=== PATIENT | female | born 1935 | race African-American/Black ===

== ENCOUNTER 2019-05-01 05:10 | Inpatient (IN) | payer OTHER ==
[~2019-05-01] VITALS: Ht 170.2 cm; Wt 73.0 kg
[2019-05-01] MEDS ORDERED: IPRATROPIUM BROMIDE (0.02%) 0.5MG/2.5ML NEB HHN STA (05:41)
[2019-05-01] MEDS ORDERED: PREDNISONE 20MG TABLET PO STA (05:41)
[2019-05-01] MEDS ORDERED: ALBUTEROL (0.083%) 2.5MG/3ML NEB HHN STA (05:41)
[2019-05-01 07:07] LABS: CLARITY URINE CLOUDY (CLEAR); COLOR URINE YELLOW (YELLOW); KETONES URINE NEGATIVE (NEGATIVE); LEUKOCYTE ESTERASE URINE NEGATIVE (NEGATIVE); NITRITE URINE NEGATIVE (NEGATIVE); OCCULT BLOOD URINE NEGATIVE (NEGATIVE); PH URINE 8.5 (4.5-8.0); PROTEIN URINE NEGATIVE (NEGATIVE); SPECIFIC GRAVITY URINE 1.011 (1.005-1.030); UROBILINOGEN URINE 0.2 E.U./dL (0.2-1.0)
[2019-05-01 07:17] LABS: BASOPHILS % 0.5 % (0.0-2.0); EOSINOPHILS % 5.4 % (0.0-5.0); HEMATOCRIT. 38.3 % (36.0-48.0); HEMOGLOBIN. 12.8 g/dL (12.0-16.0); LYMPHOCYTES % 14.5 % (20.0-50.0); MEAN CORPUSCULAR HEMOGLOBIN 34.2 pg (28.0-32.0); MEAN PLATELET VOLUME 8.3 fl (7.4-10.4); MONOCYTES % 6.9 % (2.0-8.0); NEUTROPHILS % 72.7 % (40.0-76.0); PLATELET 221 x1000/uL (130-400); RED BLOOD CELL COUNT 3.75 mill/uL (4.2-5.4); RED CELL DISTRIBUTION WIDTH 13.1 % (11.6-14.6)
[2019-05-01 07:25] LABS: CHLORIDE 100 mEq/L (98-107)
[2019-05-01] MEDS ORDERED: ASPIRIN 81MG TABLET PO ONE (08:00)
[2019-05-01] MEDS ORDERED: ENOXAPARIN 100MG/ML SYR SUBCUT ONE (08:00)
[2019-05-01] MEDS ORDERED: ALPR-340 PO (10:43)
[2019-05-01] MEDS ORDERED: HYDR25TA PO (10:43)
[2019-05-01] MEDS ORDERED: LISI-604 PO (10:43)
[2019-05-01 10:45] VITALS: BP 155/78
[2019-05-01] MEDS ORDERED: DIPHENHYDRAMINE 50MG/ML VIAL IV PRN (11:00)
[2019-05-01] MEDS ORDERED: HYDROCODONE/ACETAMINOPHEN 5/325MG TABLET PO PRN (11:00)
[2019-05-01] MEDS ORDERED: MAGNESIUM/ALUMINUM HYDROXIDE/SIMETHICONE 30ML UDC PO PRN (11:00)
[2019-05-01] MEDS ORDERED: DOCUSATE SODIUM 100MG CAPSULE PO PRN (11:00)
[2019-05-01] MEDS ORDERED: METHYLPREDNISOLONE SOD SUCC 125 MG/2 ML VIAL IV SCH (11:00)
[2019-05-01] MEDS ORDERED: NA PHOS,M-B/NA PHOS,DI-BA ENEMA 118ML PR PRN (11:00)
[2019-05-01] MEDS ORDERED: IPRATROPIUM/ALBUTEROL 0.5-3(2.5)MG/3ML NEB NEB PRN (11:00)
[2019-05-01] MEDS ORDERED: ONDANSETRON HCL 4MG/2ML INJ IV PRN (11:00)
[2019-05-01] MEDS ORDERED: MORPHINE SULFATE 2 MG/ML CPJ (NOT FOR IM USE) IV PRN (11:00)
[2019-05-01] MEDS ORDERED: ACETAMINOPHEN 325MG TABLET PO PRN (11:00)
[2019-05-01] MEDS ORDERED: CLONIDINE 0.1MG TABLET PO PRN (11:00)
[2019-05-01] MEDS: ENOXAPARIN 40MG/0.4ML SYR SUBCUT SCH (11:49)
[2019-05-01 12:00] VITALS: BP 145/75
[2019-05-01 16:00] VITALS: BP 123/69
[2019-05-01] MEDS: IPRATROPIUM/ALBUTEROL 0.5-3(2.5)MG/3ML NEB HHN SCH ×2 (16:09→20:14)
[2019-05-01] MEDS ORDERED: POTASSIUM CHLORIDE 20MEQ TABLET SR PO NR (16:20)
[2019-05-01] MEDS ORDERED: FAMOTIDINE 20MG TABLET PO SCH (17:00)
[2019-05-01 20:00] VITALS: BP 122/65
[2019-05-01 20:03] LABS: CHLORIDE 97 mEq/L (98-107)
[2019-05-01 20:09] LABS: LDL CHOLESTEROL 92 mg/dL (5-100)
[2019-05-01 20:11] LABS: HDL CHOLESTEROL 102 mg/dL (40-59)
[2019-05-01] MEDS: BUDESONIDE 0.5MG/2ML NEB HHN SCH (20:14)
[2019-05-01] MEDS: AMLODIPINE 5MG TABLET PO SCH (21:07)
[2019-05-01] MEDS: METHYLPREDNISOLONE SOD SUCC 40 MG/ML VIAL IV SCH (21:07)
[2019-05-02] VITALS: BP 127/85
[2019-05-02] MEDS: ACETYLCYSTEINE 100MG/ML 10% VIAL 4ML INH SCH ×3 (00:18→16:55)
[2019-05-02] MEDS: IPRATROPIUM/ALBUTEROL 0.5-3(2.5)MG/3ML NEB HHN SCH ×6 (00:19→20:12)
[2019-05-02 00:41] LABS: CREATINE KINASE MB FRACTION 1.9 ng/mL (0.5-3.6)
[2019-05-02 04:00] VITALS: BP 136/52
[2019-05-02] MEDS: METHYLPREDNISOLONE SOD SUCC 40 MG/ML VIAL IV SCH ×3 (05:39→22:29)
[2019-05-02 07:25] LABS: BASOPHILS % 0.5 % (0.0-2.0); HEMATOCRIT. 37.8 % (36.0-48.0); HEMOGLOBIN. 12.8 g/dL (12.0-16.0); LYMPHOCYTES % 12.1 % (20.0-50.0); MEAN CORPUSCULAR VOLUME 100.3 fL (81.0-99.0); MEAN PLATELET VOLUME 9.1 fl (7.4-10.4); MONOCYTES % 5.9 % (2.0-8.0); NEUTROPHILS % 81.5 % (40.0-76.0); PLATELET 238 x1000/uL (130-400); RED BLOOD CELL COUNT 3.77 mill/uL (4.2-5.4); RED CELL DISTRIBUTION WIDTH 12.8 % (11.6-14.6)
[2019-05-02 08:00] VITALS: BP 105/72
[2019-05-02 08:07] LABS: CHLORIDE 101 mEq/L (98-107)
[2019-05-02 08:17] LABS: CREATINE KINASE 80 IU/L (26-192)
[2019-05-02 08:19] LABS: T4 FREE 0.87 ng/dL (0.76-1.46)
[2019-05-02 08:20] LABS: CREATINE KINASE MB FRACTION 1.3 ng/mL (0.5-3.6)
[2019-05-02] MEDS: FAMOTIDINE 40MG TABLET PO SCH ×2 (09:00→12:03)
[2019-05-02] MEDS: AMLODIPINE 5MG TABLET PO SCH ×2 (09:00→22:29)
[2019-05-02] MEDS: BUDESONIDE 0.5MG/2ML NEB HHN SCH ×2 (09:46→20:12)
[2019-05-02] MEDS: LORATADINE 10MG TABLET PO SCH (09:58)
[2019-05-02] MEDS: ASPIRIN 81MG EC TABLET PO SCH (09:58)
[2019-05-02] MEDS: LORAZEPAM 2MG/ML CPJ IV PRN (10:58)
[2019-05-02 12:00] VITALS: BP 126/62
[2019-05-02] MEDS: ENOXAPARIN 40MG/0.4ML SYR SUBCUT SCH (12:02)
[2019-05-02 12:53] LABS: BG BASE EXCESS 4.6 mmol/L (-2.0-2.0); BG CARBOXYHEMOGLOBIN 0.5 % (0.5-1.5); BG DEOXYHEMOGLOBIN 8.3 % (0.0-5.0); BG FRACTION INSPIRED OXYGEN 21; BG HCO3 ACT 28.2 mmol/L (22.0-26.0); BG METHEMOGLOBIN 0.1 % (0.0-1.5); BG OXYGEN SATURATION 91.6 % (92.0-98.5); BG OXYHEMOGLOBIN 91.1 % (94.0-97.0); BG PCO2 38.4 mmHg (35.0-45.0); BG PH 7.484 (7.350-7.450); BG PO2 59.8 mmHg (75.0-100.0); BG SAMPLE SITE RIGHT RADIAL; BG TOTAL HEMOGLOBIN 13.4 g/dL (12.0-18.0); BG VENT MODE ROOM AIR
[2019-05-02 15:37] LABS: CREATINE KINASE MB FRACTION 1.1 ng/mL (0.5-3.6)
[2019-05-02 16:00] VITALS: BP 111/59
[2019-05-02 20:00] VITALS: BP 132/57
[2019-05-03] VITALS: BP 151/81
[2019-05-03] MEDS: IPRATROPIUM/ALBUTEROL 0.5-3(2.5)MG/3ML NEB HHN SCH ×6 (00:22→20:42)
[2019-05-03] MEDS: ACETYLCYSTEINE 100MG/ML 10% VIAL 4ML INH SCH ×2 (00:23→07:57)
[2019-05-03] MEDS: METHYLPREDNISOLONE SOD SUCC 40 MG/ML VIAL IV SCH ×3 (03:37→21:17)
[2019-05-03 04:00] VITALS: BP 136/73
[2019-05-03] MEDS: BUDESONIDE 0.5MG/2ML NEB HHN SCH ×2 (07:57→20:41)
[2019-05-03 08:00] VITALS: BP 131/64
[2019-05-03] MEDS: LORATADINE 10MG TABLET PO SCH (09:44)
[2019-05-03] MEDS: ASPIRIN 81MG EC TABLET PO SCH (09:44)
[2019-05-03] MEDS: FAMOTIDINE 40MG TABLET PO SCH (09:44)
[2019-05-03] MEDS: AMLODIPINE 5MG TABLET PO SCH ×2 (09:45→21:00)
[2019-05-03 12:00] VITALS: BP 134/79
[2019-05-03] MEDS: ENOXAPARIN 40MG/0.4ML SYR SUBCUT SCH (12:06)
[2019-05-03 12:47] LABS: BASOPHILS % 0.3 % (0.0-2.0); HEMATOCRIT. 38.7 % (36.0-48.0); LYMPHOCYTES % 9.3 % (20.0-50.0); MEAN CORPUSCULAR VOLUME 101.2 fL (81.0-99.0); MEAN PLATELET VOLUME 8.9 fl (7.4-10.4); MONOCYTES % 7.2 % (2.0-8.0); NEUTROPHILS % 83.2 % (40.0-76.0); PLATELET 255 x1000/uL (130-400); RED BLOOD CELL COUNT 3.83 mill/uL (4.2-5.4); RED CELL DISTRIBUTION WIDTH 12.9 % (11.6-14.6)
[2019-05-03 13:01] LABS: CHLORIDE 102 mEq/L (98-107)
[2019-05-03 16:00] VITALS: BP 131/60
[2019-05-03 20:00] VITALS: BP 109/86
[2019-05-04] VITALS: BP 139/60
[2019-05-04] MEDS: ACETYLCYSTEINE 100MG/ML 10% VIAL 4ML INH SCH ×3 (00:44→16:23)
[2019-05-04] MEDS: IPRATROPIUM/ALBUTEROL 0.5-3(2.5)MG/3ML NEB HHN SCH ×5 (00:45→16:23)
[2019-05-04] MEDS: METHYLPREDNISOLONE SOD SUCC 40 MG/ML VIAL IV SCH ×2 (03:00→12:36)
[2019-05-04 04:00] VITALS: BP 136/73
[2019-05-04] MEDS: BUDESONIDE 0.5MG/2ML NEB HHN SCH (08:23)
[2019-05-04] MEDS: FAMOTIDINE 40MG TABLET PO SCH (08:38)
[2019-05-04] MEDS: ASPIRIN 81MG EC TABLET PO SCH (08:38)
[2019-05-04] MEDS: GUAIFENESIN 200MG/10ML SUGAR FREE UDC PO PRN ×2 (08:38→12:38)
[2019-05-04] MEDS: LORATADINE 10MG TABLET PO SCH (08:38)
[2019-05-04] MEDS: AMLODIPINE 5MG TABLET PO SCH (08:38)
[2019-05-04 12:00] VITALS: BP 126/75
[2019-05-04] MEDS: ENOXAPARIN 40MG/0.4ML SYR SUBCUT SCH (12:36)
[2019-05-04] MEDS ORDERED: FLUT1AER INH (15:22)
[2019-05-04] MEDS ORDERED: FAMO-135 MT (15:22)
[2019-05-04] MEDS ORDERED: P20 PO (15:22)
[2019-05-04] MEDS ORDERED: AMLO5TAB4 MT (15:22)
[2019-05-04] MEDS ORDERED: ALBU90AE INH (15:22)
[2019-05-04] MEDS ORDERED: CLAR10 MT (15:22)
[2019-05-04 16:15] VITALS: BP 133/75
[2019-05-04] MEDS: LORAZEPAM 2MG/ML CPJ IV PRN (17:23)
[2019-05-04 17:26] VITALS: BP 133/75
== END 2019-05-04 17:55 | disposition home or self-care (01) | DRG 291 ==
LOC: ER 05:10 → 5WST 08:45 → EDBEDREQ 08:49 → ENRESERV 09:35
PROVIDERS: ADMIT Internal Medicine; ATTEND Internal Medicine
DX: I11.0 Hypertensive heart disease with heart failure (principal); J96.00 Acute respiratory failure, unspecified whether with hypoxia or hypercapnia; J45.901 Unspecified asthma with (acute) exacerbation; E44.1 Mild protein-calorie malnutrition; E87.1 Hypo-osmolality and hyponatremia; I50.43 Acute on chronic combined systolic (congestive) and diastolic (congestive) heart failure; E78.5 Hyperlipidemia, unspecified; E87.6 Hypokalemia; M19.90 Unspecified osteoarthritis, unspecified site; I16.0 Hypertensive urgency; D72.1 Eosinophilia; N81.2 Incomplete uterovaginal prolapse; Z79.899 Other long term (current) drug therapy; Z88.1 Allergy status to other antibiotic agents; Z88.0 Allergy status to penicillin; Z88.2 Allergy status to sulfonamides; Z88.8 Allergy status to other drugs, medicaments and biological substances; Z68.25 Body mass index [BMI] 25.0-25.9, adult
CPT/HCPCS: 36415; 36600; 71045; 71250; 80048; 80053; 80061; 81003; 82375; 82550; 82553; 82805; 83036; 83880; 84439; 84443; 84484; 85025; 85379; 93005; 93306; 93970; 94618; 94640; 96372; 99285; J1650; J2060; J2920; J2930; J7512; J7608; J7611; J7620; J7626

== ENCOUNTER 2019-08-29 07:22 | Inpatient (IN) | payer OTHER ==
[~2019-08-29] VITALS: Ht 167.6 cm; Wt 70.8 kg
[~2019-08-29 07:22] MED LIST: ALBU90AE INH; ALPR-340 PO; AMLO5TAB4 MT; CLAR10 MT; FAMO-135 MT; FLUT1AER INH; P20 PO
[2019-08-29] MEDS ORDERED: SUCCINYLCHOLINE CHLORIDE 200MG/10ML IV ONE (07:30)
[2019-08-29] MEDS ORDERED: ETOMIDATE 2MG/ML 10ML VIAL IV ONE (07:30)
[2019-08-29] MEDS ORDERED: PROPOFOL 10MG/ML 100ML 100 ML IV ONE ×2 (07:43→08:00)
[2019-08-29] MEDS ORDERED: LORAZEPAM 2MG/ML CPJ ONE ×2 (07:44→07:58)
[2019-08-29] MEDS ORDERED: SODIUM CHLORIDE 0.9% 1000ML BAG (SEPSIS BOLUS) IV ONE (08:00)
[2019-08-29] MEDS ORDERED: LORAZEPAM 2MG/ML CPJ IV ONE (08:00)
[2019-08-29] MEDS ORDERED: MIDAZOLAM HCL 50 MG in DEXTROSE 5% WATER 40 ML IV ONE ×2 (08:15→08:30)
[2019-08-29 08:40] LABS: BASOPHILS % 1.6 % (0.0-2.0); CHLORIDE 109 mEq/L (98-107); EOSINOPHILS % 4.3 % (0.0-5.0); HEMATOCRIT. 37.9 % (36.0-48.0); HEMOGLOBIN. 12.5 g/dL (12.0-16.0); MEAN CORPUSCULAR HEMOGLOBIN 35.2 pg (28.0-32.0); MEAN CORPUSCULAR VOLUME 106.9 fL (81.0-99.0); MEAN PLATELET VOLUME 9.2 fl (7.4-10.4); NEUTROPHILS % 51.1 % (40.0-76.0); PLATELET 225 x1000/uL (130-400); RED BLOOD CELL COUNT 3.55 mill/uL (4.2-5.4); RED CELL DISTRIBUTION WIDTH 13.1 % (11.6-14.6)
[2019-08-29 08:48] LABS: INR 1.1; PROTHROMBIN TIME 12.4 sec (9.6-11.0)
[2019-08-29 09:02] LABS: BG CARBOXYHEMOGLOBIN 2.4 % (0.5-1.5); BG DEOXYHEMOGLOBIN 2.6 % (0.0-5.0); BG HCO3 ACT 19.4 mmol/L (22.0-26.0); BG METHEMOGLOBIN 0.2 % (0.0-1.5); BG OXYGEN SATURATION 97.3 % (92.0-98.5); BG OXYHEMOGLOBIN 94.8 % (94.0-97.0); BG PCO2 47.1 mmHg (35.0-45.0); BG PH 7.232 (7.350-7.450); BG SAMPLE SITE RIGHT BRACHIAL; BG TIDAL VOLUME(mL) 550 mL; BG TOTAL HEMOGLOBIN 11.6 g/dL (12.0-18.0); BG VENT MODE VENT - A/C; BG VENT RATE 14 set
[2019-08-29 09:14] LABS: CLARITY URINE CLEAR (CLEAR); COLOR URINE DARK YELLOW (YELLOW); KETONES URINE NEGATIVE (NEGATIVE); LEUKOCYTE ESTERASE URINE NEGATIVE (NEGATIVE); NITRITE URINE POSITIVE (NEGATIVE); OCCULT BLOOD URINE NEGATIVE (NEGATIVE); PH URINE 5.5 (4.5-8.0); PROTEIN URINE 2+ (NEGATIVE); SPECIFIC GRAVITY URINE 1.019 (1.005-1.030)
[2019-08-29] MEDS ORDERED: SODIUM CHLORIDE 0.9% 1,000 ML IV ONE (10:56)
[2019-08-29] MEDS ORDERED: NOREPINEPHRINE 4 MG in DEXT 5% WATER 246 ML IV ONE (11:00)
[2019-08-29 11:04] LABS: BG BASE EXCESS -3.8 mmol/L (-2.0-2.0); BG CARBOXYHEMOGLOBIN 1.8 % (0.5-1.5); BG HCO3 ACT 20.4 mmol/L (22.0-26.0); BG METHEMOGLOBIN 0.1 % (0.0-1.5); BG OXYHEMOGLOBIN 96.1 % (94.0-97.0); BG PCO2 34.3 mmHg (35.0-45.0); BG PH 7.393 (7.350-7.450); BG PO2 130.3 mmHg (75.0-100.0); BG SAMPLE SITE LEFT RADIAL; BG TIDAL VOLUME(mL) 550 mL; BG VENT MODE VENT - A/C; BG VENT RATE 14 set
[2019-08-29] MEDS ORDERED: NOREPINEPHRINE 4MG/250ML PMX 250 ML IV ONE ×2 (11:08→21:31)
[2019-08-29] MEDS ORDERED: METOCLOPRAMIDE HCL 10MG/2ML VIAL IV PRN (11:15)
[2019-08-29] MEDS ORDERED: CEFEPIME 1,000 MG in DEXTROSE 5% WATER 50 ML IV SCH ×3 (11:15→23:45)
[2019-08-29] MEDS ORDERED: ACETAMINOPHEN 325MG TABLET PO PRN (11:15)
[2019-08-29] MEDS ORDERED: FUROSEMIDE 20MG/2ML VIAL IVP ONE (12:00)
[2019-08-29] MEDS ORDERED: NOREPINEPHRINE 4MG/250ML PMX 250 ML IV PRN (13:45)
[2019-08-29] MEDS ORDERED: MIDAZOLAM HCL 50 MG in DEXTROSE 5% WATER 40 ML IV NR (15:00)
[2019-08-29] MEDS: THIAMINE HCL 100MG TABLET PO SCH (17:00)
[2019-08-30] VITALS (34 sets, daily range): BP systolic 136–168; BP diastolic 69–91
[2019-08-30 01:17] LABS: HEMATOCRIT 37.3 % (36.0-48.0); HEMOGLOBIN 12.3 g/dL (12.0-16.0); MEAN CORPUSCULAR VOLUME 106.5 fL (81.0-99.0); PLATELET 158 x1000/uL (130-400); RED BLOOD CELL COUNT 3.51 mill/uL (4.2-5.4); RED CELL DISTRIBUTION WIDTH 13.1 % (11.6-14.6)
[2019-08-30 05:05] LABS: BASOPHILS % 0.6 % (0.0-2.0); EOSINOPHILS % 1.3 % (0.0-5.0); HEMATOCRIT. 34.8 % (36.0-48.0); HEMOGLOBIN. 11.7 g/dL (12.0-16.0); LYMPHOCYTES % 16.4 % (20.0-50.0); MEAN CORPUSCULAR HEMOGLOBIN 35.4 pg (28.0-32.0); MEAN CORPUSCULAR VOLUME 105.2 fL (81.0-99.0); MEAN PLATELET VOLUME 8.8 fl (7.4-10.4); MONOCYTES % 10.5 % (2.0-8.0); NEUTROPHILS % 71.2 % (40.0-76.0); PLATELET 149 x1000/uL (130-400); RED BLOOD CELL COUNT 3.31 mill/uL (4.2-5.4); RED CELL DISTRIBUTION WIDTH 12.8 % (11.6-14.6)
[2019-08-30 05:12] LABS: CHLORIDE 112 mEq/L (98-107)
[2019-08-30] MEDS ORDERED: PROPOFOL 10MG/ML 100ML 100 ML IV SCH (07:45)
[2019-08-30 07:58] LABS: BG CARBOXYHEMOGLOBIN 1.5 % (0.5-1.5); BG DEOXYHEMOGLOBIN 0.9 % (0.0-5.0); BG HCO3 ACT 21.1 mmol/L (22.0-26.0); BG OXYGEN SATURATION 99.1 % (92.0-98.5); BG OXYHEMOGLOBIN 97.6 % (94.0-97.0); BG PCO2 30.5 mmHg (35.0-45.0); BG PH 7.457 (7.350-7.450); BG PO2 172.1 mmHg (75.0-100.0); BG SAMPLE SITE RIGHT BRACHIAL; BG TIDAL VOLUME(mL) 550 mL; BG TOTAL HEMOGLOBIN 10.9 g/dL (12.0-18.0); BG VENT MODE VENT - A/C; BG VENT RATE 14 set
[2019-08-30] MEDS: ASCORBIC ACID 500 MG TABLET PO SCH ×3 (09:00→21:55)
[2019-08-30] MEDS ORDERED: MIDAZOLAM HCL 50 MG in DEXTROSE 5% WATER 40 ML IV ONE ×2 (09:45→15:30)
[2019-08-30] MEDS: PANTOPRAZOLE SODIUM 40 MG/VIAL IV SCH (09:57)
[2019-08-30] MEDS: THIAMINE HCL 100MG TABLET PO SCH ×2 (09:57→16:25)
[2019-08-30] MEDS: ZINC SULFATE 220 MG ( 50 ) CAPSULE NG SCH (09:57)
[2019-08-30] MEDS: ENOXAPARIN 30MG/0.3ML SYR SUBCUT SCH (11:25)
[2019-08-30] MEDS ORDERED: CEFEPIME 1,000 MG in DEXTROSE 5% WATER 50 ML IV ONE (12:00)
[2019-08-30] MEDS ORDERED: NOREPINEPHRINE 4 MG in DEXT 5% WATER 246 ML IV NR (14:00)
[2019-08-30] MEDS ORDERED: PNEUMOCOCCAL 23-VAL P-SAC VAC 0.5 ML IM ONE (17:30)
[2019-08-30] MEDS ORDERED: INFLUENZA VIRUS VACCINE(AFLURIA) 0.5ML SYR IM ONE (17:45)
[2019-08-30 18:18] LABS: BG BASE EXCESS 0.4 mmol/L (-2.0-2.0); BG CARBOXYHEMOGLOBIN 1.2 % (0.5-1.5); BG FRACTION INSPIRED OXYGEN 60; BG HCO3 ACT 22.7 mmol/L (22.0-26.0); BG METHEMOGLOBIN 0.2 % (0.0-1.5); BG OXYHEMOGLOBIN 97.6 % (94.0-97.0); BG PCO2 29.2 mmHg (35.0-45.0); BG PH 7.508 (7.350-7.450); BG PO2 227.5 mmHg (75.0-100.0); BG SAMPLE SITE RIGHT RADIAL; BG TIDAL VOLUME(mL) 550 mL; BG TOTAL HEMOGLOBIN 11.2 g/dL (12.0-18.0); BG VENT MODE VENT - A/C; BG VENT RATE 14 set
[2019-08-30] MEDS: CEFEPIME 1,000 MG in DEXTROSE 5% WATER 50 ML IV SCH (21:55)
[2019-08-30] MEDS: PROPOFOL 10MG/ML 100ML 100 ML IV PRN (21:58)
[2019-08-30] MEDS: IPRATROPIUM/ALBUTEROL 0.5-3(2.5)MG/3ML NEB HHN SCH (23:45)
[2019-08-31] VITALS (46 sets, daily range): BP systolic 106–183; BP diastolic 42–101
[2019-08-31] MEDS: CLONIDINE 0.1MG TABLET PO PRN (01:30)
[2019-08-31] MEDS: PROPOFOL 10MG/ML 100ML 100 ML IV PRN ×2 (06:06→15:04)
[2019-08-31 07:16] LABS: BASOPHILS % 0.6 % (0.0-2.0); EOSINOPHILS % 1.2 % (0.0-5.0); HEMATOCRIT. 34.3 % (36.0-48.0); HEMOGLOBIN. 11.4 g/dL (12.0-16.0); LYMPHOCYTES % 10.7 % (20.0-50.0); MEAN CORPUSCULAR HEMOGLOBIN 34.7 pg (28.0-32.0); MEAN CORPUSCULAR VOLUME 104.7 fL (81.0-99.0); MONOCYTES % 9.1 % (2.0-8.0); NEUTROPHILS % 78.4 % (40.0-76.0); PLATELET 128 x1000/uL (130-400); RED BLOOD CELL COUNT 3.28 mill/uL (4.2-5.4); RED CELL DISTRIBUTION WIDTH 12.9 % (11.6-14.6)
[2019-08-31 08:23] LABS: CHLORIDE 109 mEq/L (98-107)
[2019-08-31] MEDS: PANTOPRAZOLE SODIUM 40 MG/VIAL IV SCH (08:23)
[2019-08-31] MEDS: ZINC SULFATE 220 MG ( 50 ) CAPSULE NG SCH (08:23)
[2019-08-31] MEDS: CEFEPIME 1,000 MG in DEXTROSE 5% WATER 50 ML IV SCH (08:23)
[2019-08-31] MEDS: ASCORBIC ACID 500 MG TABLET PO SCH ×2 (08:23→20:37)
[2019-08-31] MEDS: THIAMINE HCL 100MG TABLET PO SCH ×2 (08:23→16:08)
[2019-08-31] MEDS: ENOXAPARIN 30MG/0.3ML SYR SUBCUT SCH (08:24)
[2019-08-31] MEDS: IPRATROPIUM/ALBUTEROL 0.5-3(2.5)MG/3ML NEB HHN SCH ×3 (08:24→16:37)
[2019-08-31 09:56] LABS: BG BASE EXCESS -0.2 mmol/L (-2.0-2.0); BG CARBOXYHEMOGLOBIN 1.7 % (0.5-1.5); BG FRACTION INSPIRED OXYGEN 45; BG HCO3 ACT 23.4 mmol/L (22.0-26.0); BG METHEMOGLOBIN 0.2 % (0.0-1.5); BG OXYHEMOGLOBIN 97.1 % (94.0-97.0); BG PCO2 34.5 mmHg (35.0-45.0); BG PH 7.449 (7.350-7.450); BG PO2 152.3 mmHg (75.0-100.0); BG SAMPLE SITE RIGHT BRACHIAL; BG TIDAL VOLUME(mL) 450 mL; BG TOTAL HEMOGLOBIN 11.5 g/dL (12.0-18.0); BG VENT MODE VENT - A/C; BG VENT RATE 14 set
[2019-08-31] MEDS ORDERED: FUROSEMIDE 40MG/4ML VIAL IVP NR (10:45)
[2019-08-31] MEDS: LOSARTAN POTASSIUM 25 MG TABLET PO SCH (12:39)
[2019-08-31] MEDS ORDERED: ONDANSETRON HCL 4MG/2ML INJ IV PRN (14:00)
[2019-08-31] MEDS ORDERED: HYDRALAZINE 20MG/ML VIAL IV PRN (14:00)
[2019-08-31 14:50] LABS: CREATINE KINASE MB FRACTION 1.9 ng/mL (0.5-3.6)
[2019-08-31] MEDS: METHYLPREDNISOLONE SOD SUCC 40 MG/ML VIAL IV SCH (15:03)
[2019-08-31] MEDS: MORPHINE SULFATE 2 MG/ML CPJ (NOT FOR IM USE) IV PRN (15:04)
[2019-08-31] MEDS: LORAZEPAM 2MG/ML CPJ IV PRN (16:23)
[2019-08-31] MEDS ORDERED: PROPOFOL 10MG/ML 100ML 100 ML IV PRN (19:30)
[2019-09-01] VITALS (43 sets, daily range): BP systolic 118–159; BP diastolic 54–84
[2019-09-01] MEDS: CEFEPIME 1,000 MG in DEXTROSE 5% WATER 50 ML IV SCH (05:18)
[2019-09-01 06:26] LABS: HEMATOCRIT 33.5 % (36.0-48.0); HEMOGLOBIN 11.2 g/dL (12.0-16.0); MEAN CORPUSCULAR HEMOGLOBIN 34.8 pg (28.0-32.0); MEAN CORPUSCULAR VOLUME 104.6 fL (81.0-99.0); PLATELET 149 x1000/uL (130-400); RED BLOOD CELL COUNT 3.21 mill/uL (4.2-5.4)
[2019-09-01 06:40] LABS: CHLORIDE 107 mEq/L (98-107)
[2019-09-01 07:41] LABS: BG BASE EXCESS 1.6 mmol/L (-2.0-2.0); BG CARBOXYHEMOGLOBIN 1.7 % (0.5-1.5); BG DEOXYHEMOGLOBIN 1.5 % (0.0-5.0); BG FRACTION INSPIRED OXYGEN 40; BG HCO3 ACT 25.5 mmol/L (22.0-26.0); BG METHEMOGLOBIN 0.2 % (0.0-1.5); BG OXYGEN SATURATION 98.5 % (92.0-98.5); BG OXYHEMOGLOBIN 96.6 % (94.0-97.0); BG PCO2 37.3 mmHg (35.0-45.0); BG PH 7.452 (7.350-7.450); BG PO2 139.3 mmHg (75.0-100.0); BG SAMPLE SITE RIGHT RADIAL; BG TIDAL VOLUME(mL) 450 mL; BG TOTAL HEMOGLOBIN 11.2 g/dL (12.0-18.0); BG VENT MODE VENT - A/C; BG VENT RATE 14 set
[2019-09-01] MEDS: IPRATROPIUM/ALBUTEROL 0.5-3(2.5)MG/3ML NEB HHN SCH ×3 (07:51→15:24)
[2019-09-01] MEDS: PANTOPRAZOLE SODIUM 40 MG/VIAL IV SCH (08:11)
[2019-09-01] MEDS: ZINC SULFATE 220 MG ( 50 ) CAPSULE NG SCH (08:12)
[2019-09-01] MEDS: METHYLPREDNISOLONE SOD SUCC 40 MG/ML VIAL IV SCH (08:12)
[2019-09-01] MEDS: LOSARTAN POTASSIUM 25 MG TABLET PO SCH (08:12)
[2019-09-01] MEDS: ENOXAPARIN 30MG/0.3ML SYR SUBCUT SCH (08:12)
[2019-09-01] MEDS: ASCORBIC ACID 500 MG TABLET PO SCH ×2 (08:12→20:21)
[2019-09-01] MEDS: THIAMINE HCL 100MG TABLET PO SCH ×2 (08:12→17:04)
[2019-09-01] MEDS ORDERED: POTASSIUM CHLORIDE 20MEQ/PACKET PO NR (09:00)
[2019-09-01] MEDS: FUROSEMIDE 40MG/4ML VIAL IVP SCH (10:46)
[2019-09-01] MEDS: MORPHINE SULFATE 2 MG/ML CPJ (NOT FOR IM USE) IV PRN (11:54)
[2019-09-01] MEDS: CLONIDINE 0.1MG TABLET PO PRN (12:59)
[2019-09-01] MEDS: LORAZEPAM 2MG/ML CPJ IV PRN (12:59)
[2019-09-01] MEDS ORDERED: ENOXAPARIN 40MG/0.4ML SYR SUBCUT NR (13:15)
[2019-09-01] MEDS: ACETYLCYSTEINE 100MG/ML 10% VIAL 4ML INH SCH (15:24)
[2019-09-01] MEDS: PROPOFOL 10MG/ML 100ML 100 ML IV PRN (19:33)
[2019-09-01] MEDS: CARVEDILOL 3.125 MG TABLET PO SCH (20:22)
[2019-09-01] MEDS: ENOXAPARIN 80MG/0.8ML SYR SUBCUT SCH (21:17)
[2019-09-02] VITALS (61 sets, daily range): BP systolic 121–165; BP diastolic 24–83
[2019-09-02] MEDS: ACETYLCYSTEINE 100MG/ML 10% VIAL 4ML INH SCH ×4 (00:13→14:21)
[2019-09-02] MEDS: PROPOFOL 10MG/ML 100ML 100 ML IV PRN ×2 (04:20→10:38)
[2019-09-02] MEDS: CEFEPIME 1,000 MG in DEXTROSE 5% WATER 50 ML IV SCH (05:30)
[2019-09-02 06:22] LABS: HEMATOCRIT 34.2 % (36.0-48.0); HEMOGLOBIN 11.5 g/dL (12.0-16.0); MEAN CORPUSCULAR VOLUME 104.5 fL (81.0-99.0); PLATELET 158 x1000/uL (130-400); RED BLOOD CELL COUNT 3.27 mill/uL (4.2-5.4); RED CELL DISTRIBUTION WIDTH 12.8 % (11.6-14.6)
[2019-09-02 06:27] LABS: CHLORIDE 107 mEq/L (98-107)
[2019-09-02 07:52] LABS: BG BASE EXCESS 3.7 mmol/L (-2.0-2.0); BG CARBOXYHEMOGLOBIN 1.6 % (0.5-1.5); BG DEOXYHEMOGLOBIN 1.5 % (0.0-5.0); BG FRACTION INSPIRED OXYGEN 30; BG HCO3 ACT 27.6 mmol/L (22.0-26.0); BG METHEMOGLOBIN 0.1 % (0.0-1.5); BG OXYGEN SATURATION 98.5 % (92.0-98.5); BG OXYHEMOGLOBIN 96.8 % (94.0-97.0); BG PCO2 38.7 mmHg (35.0-45.0); BG PH 7.471 (7.350-7.450); BG PO2 132.9 mmHg (75.0-100.0); BG SAMPLE SITE RIGHT RADIAL; BG TIDAL VOLUME(mL) 450 mL; BG TOTAL HEMOGLOBIN 8.2 g/dL (12.0-18.0); BG VENT MODE VENT - A/C; BG VENT RATE 14 set
[2019-09-02] MEDS: IPRATROPIUM/ALBUTEROL 0.5-3(2.5)MG/3ML NEB HHN SCH ×2 (08:06→14:10)
[2019-09-02] MEDS: METHYLPREDNISOLONE SOD SUCC 40 MG/ML VIAL IV SCH (08:52)
[2019-09-02] MEDS: FUROSEMIDE 40MG/4ML VIAL IVP SCH (08:52)
[2019-09-02] MEDS: ASCORBIC ACID 500 MG TABLET PO SCH ×2 (08:52→21:01)
[2019-09-02] MEDS: THIAMINE HCL 100MG TABLET PO SCH ×2 (08:53→16:14)
[2019-09-02] MEDS: ZINC SULFATE 220 MG ( 50 ) CAPSULE NG SCH (08:53)
[2019-09-02] MEDS: LOSARTAN POTASSIUM 25 MG TABLET PO SCH (08:53)
[2019-09-02] MEDS: CARVEDILOL 3.125 MG TABLET PO SCH ×2 (08:53→21:01)
[2019-09-02] MEDS: PANTOPRAZOLE SODIUM 40 MG/VIAL IV SCH (08:57)
[2019-09-02] MEDS: ENOXAPARIN 80MG/0.8ML SYR SUBCUT SCH ×2 (09:00→21:04)
[2019-09-02 12:38] LABS: BG BASE EXCESS 6.4 mmol/L (-2.0-2.0); BG CARBOXYHEMOGLOBIN 1.6 % (0.5-1.5); BG DEOXYHEMOGLOBIN 1.7 % (0.0-5.0); BG FRACTION INSPIRED OXYGEN 30; BG HCO3 ACT 30.6 mmol/L (22.0-26.0); BG METHEMOGLOBIN 0.2 % (0.0-1.5); BG OXYGEN SATURATION 98.3 % (92.0-98.5); BG OXYHEMOGLOBIN 96.5 % (94.0-97.0); BG PCO2 42.6 mmHg (35.0-45.0); BG PH 7.474 (7.350-7.450); BG PO2 119.3 mmHg (75.0-100.0); BG PRESSURE SUPPORT 10; BG SAMPLE SITE RIGHT RADIAL; BG TOTAL HEMOGLOBIN 11.5 g/dL (12.0-18.0); BG VENT MODE VENT - CPAP
[2019-09-02] MEDS: LORAZEPAM 2MG/ML CPJ IV PRN (13:48)
[2019-09-02] MEDS ORDERED: FUROSEMIDE 40MG/4ML VIAL IVP NR (15:15)
[2019-09-02] MEDS ORDERED: BISACODYL 10MG SUPP PR NR (16:00)
[2019-09-02] MEDS ORDERED: LORAZEPAM 2MG/ML CPJ IV PRN (16:00)
[2019-09-02 16:41] LABS: BG BASE EXCESS 6.4 mmol/L (-2.0-2.0); BG CARBOXYHEMOGLOBIN 1.3 % (0.5-1.5); BG DEOXYHEMOGLOBIN 2.6 % (0.0-5.0); BG FRACTION INSPIRED OXYGEN 35; BG HCO3 ACT 31.1 mmol/L (22.0-26.0); BG METHEMOGLOBIN 0.2 % (0.0-1.5); BG OXYGEN SATURATION 97.4 % (92.0-98.5); BG OXYHEMOGLOBIN 95.9 % (94.0-97.0); BG PCO2 45.6 mmHg (35.0-45.0); BG PH 7.452 (7.350-7.450); BG SAMPLE SITE RIGHT RADIAL; BG TOTAL HEMOGLOBIN 11.6 g/dL (12.0-18.0); BG VENT MODE MASK - AEROSOL
[2019-09-03] VITALS (27 sets, daily range): BP systolic 119–174; BP diastolic 61–105
[2019-09-03] MEDS: IPRATROPIUM/ALBUTEROL 0.5-3(2.5)MG/3ML NEB HHN SCH ×4 (00:15→15:57)
[2019-09-03] MEDS: ACETYLCYSTEINE 100MG/ML 10% VIAL 4ML INH SCH ×4 (00:15→15:57)
[2019-09-03] MEDS: CEFEPIME 1,000 MG in DEXTROSE 5% WATER 50 ML IV SCH (05:50)
[2019-09-03 06:15] LABS: HEMATOCRIT 33.9 % (36.0-48.0); HEMOGLOBIN 11.2 g/dL (12.0-16.0); MEAN CORPUSCULAR HEMOGLOBIN 34.7 pg (28.0-32.0); MEAN CORPUSCULAR VOLUME 104.8 fL (81.0-99.0); PLATELET 185 x1000/uL (130-400); RED BLOOD CELL COUNT 3.24 mill/uL (4.2-5.4); RED CELL DISTRIBUTION WIDTH 12.7 % (11.6-14.6)
[2019-09-03 06:48] LABS: CHLORIDE 105 mEq/L (98-107)
[2019-09-03 08:03] LABS: BG BASE EXCESS 7.2 mmol/L (-2.0-2.0); BG CARBOXYHEMOGLOBIN 1.8 % (0.5-1.5); BG DEOXYHEMOGLOBIN 6.7 % (0.0-5.0); BG FRACTION INSPIRED OXYGEN 21; BG HCO3 ACT 30.8 mmol/L (22.0-26.0); BG METHEMOGLOBIN 0.2 % (0.0-1.5); BG OXYGEN SATURATION 93.2 % (92.0-98.5); BG OXYHEMOGLOBIN 91.3 % (94.0-97.0); BG PCO2 39.8 mmHg (35.0-45.0); BG PH 7.506 (7.350-7.450); BG PO2 64.3 mmHg (75.0-100.0); BG SAMPLE SITE RIGHT RADIAL; BG TOTAL HEMOGLOBIN 12.2 g/dL (12.0-18.0); BG VENT MODE ROOM AIR
[2019-09-03] MEDS: FUROSEMIDE 40MG/4ML VIAL IVP SCH (08:16)
[2019-09-03] MEDS: PANTOPRAZOLE SODIUM 40 MG/VIAL IV SCH (08:16)
[2019-09-03] MEDS: THIAMINE HCL 100MG TABLET PO SCH ×2 (08:16→18:47)
[2019-09-03] MEDS: ASCORBIC ACID 500 MG TABLET PO SCH ×2 (08:16→22:15)
[2019-09-03] MEDS: CARVEDILOL 3.125 MG TABLET PO SCH ×2 (08:16→22:14)
[2019-09-03] MEDS: METHYLPREDNISOLONE SOD SUCC 40 MG/ML VIAL IV SCH ×2 (08:16→18:47)
[2019-09-03] MEDS: LOSARTAN POTASSIUM 25 MG TABLET PO SCH (08:16)
[2019-09-03] MEDS: ZINC SULFATE 220 MG ( 50 ) CAPSULE NG SCH (08:16)
[2019-09-03] MEDS: ENOXAPARIN 80MG/0.8ML SYR SUBCUT SCH ×2 (09:00→22:15)
[2019-09-03] MEDS ORDERED: POTASSIUM CHLORIDE INJ 40 MEQ in DEXT 5% WATER 250 ML IV NR (12:30)
[2019-09-04] VITALS (7 sets, daily range): BP systolic 104–136; BP diastolic 56–80
[2019-09-04] MEDS: CEFEPIME 1,000 MG in DEXTROSE 5% WATER 50 ML IV SCH (06:00)
[2019-09-04 06:08] LABS: CHLORIDE 100 mEq/L (98-107)
[2019-09-04 06:09] LABS: HEMATOCRIT 34.5 % (36.0-48.0); HEMOGLOBIN 11.7 g/dL (12.0-16.0); MEAN CORPUSCULAR HEMOGLOBIN 35.1 pg (28.0-32.0); MEAN CORPUSCULAR VOLUME 103.7 fL (81.0-99.0); PLATELET 223 x1000/uL (130-400); RED BLOOD CELL COUNT 3.32 mill/uL (4.2-5.4); RED CELL DISTRIBUTION WIDTH 12.6 % (11.6-14.6)
[2019-09-04] MEDS ORDERED: POTASSIUM CHLORIDE 20MEQ TABLET SR PO SCH (09:00)
[2019-09-04] MEDS: METHYLPREDNISOLONE SOD SUCC 40 MG/ML VIAL IV SCH ×2 (09:42→17:43)
[2019-09-04] MEDS: PANTOPRAZOLE SODIUM 40 MG/VIAL IV SCH (09:42)
[2019-09-04] MEDS: ENOXAPARIN 80MG/0.8ML SYR SUBCUT SCH (09:43)
[2019-09-04] MEDS: FUROSEMIDE 40MG/4ML VIAL IVP SCH (11:48)
[2019-09-04] MEDS: THIAMINE HCL 100MG TABLET PO SCH ×2 (11:49→17:43)
[2019-09-04] MEDS: ASCORBIC ACID 500 MG TABLET PO SCH (11:49)
[2019-09-04] MEDS: ZINC SULFATE 220 MG ( 50 ) CAPSULE NG SCH (11:49)
[2019-09-04] MEDS: CARVEDILOL 3.125 MG TABLET PO SCH ×2 (11:53→21:00)
[2019-09-04] MEDS: LOSARTAN POTASSIUM 25 MG TABLET PO SCH (11:58)
[2019-09-04] MEDS ORDERED: POTASSIUM CHLORIDE 20MEQ TABLET SR PO NR (13:15)
[2019-09-04] MEDS ORDERED: APIXABAN 5 MG TABLET PO SCH (17:00)
[2019-09-05] MEDS ORDERED: FAMOTIDINE 20MG/2ML VIAL IV SCH (09:00)
== END 2019-09-04 23:25 | DRG 870 ==
LOC: ER 07:28 → EDBEDREQ 08:11 → EDBEDREQTM 10:07 → EDBEDREQ 19:39 → ENRESERV 08-30 14:28 → MICUNO 08-30 15:58 → CVICU 08-31 01:10 → 6WST 09-03 17:06
PROVIDERS: ADMIT Internal Medicine; ATTEND Internal Medicine
PROC: 5A1955Z Respiratory Ventilation, Greater than 96 Consecutive Hours (ICD-10-PCS; principal; 2019-08-29)
PROC: 0BH17EZ Insertion of Endotracheal Airway into Trachea, Via Natural or Artificial Opening (ICD-10-PCS; 2019-08-29)
PROC: 06HY33Z Insertion of Infusion Device into Lower Vein, Percutaneous Approach (ICD-10-PCS; 2019-08-29)
PROC: B54BZZA Ultrasonography of Right Lower Extremity Veins, Guidance (ICD-10-PCS; 2019-08-29)
DX: A41.9 Sepsis, unspecified organism (principal); J96.01 Acute respiratory failure with hypoxia; I50.43 Acute on chronic combined systolic (congestive) and diastolic (congestive) heart failure; R65.21 Severe sepsis with septic shock; J69.0 Pneumonitis due to inhalation of food and vomit; E44.0 Moderate protein-calorie malnutrition; I42.9 Cardiomyopathy, unspecified; E87.2 Acidosis; J44.0 Chronic obstructive pulmonary disease with (acute) lower respiratory infection; Z99.11 Dependence on respirator [ventilator] status; I82.412 Acute embolism and thrombosis of left femoral vein; I82.432 Acute embolism and thrombosis of left popliteal vein; I11.0 Hypertensive heart disease with heart failure; E78.5 Hyperlipidemia, unspecified; M19.90 Unspecified osteoarthritis, unspecified site; Z20.828 Contact with and (suspected) exposure to other viral communicable diseases; R94.31 Abnormal electrocardiogram [ECG] [EKG]; E87.8 Other disorders of electrolyte and fluid balance, not elsewhere classified; D64.9 Anemia, unspecified; Z79.51 Long term (current) use of inhaled steroids; Z79.899 Other long term (current) drug therapy; Z88.0 Allergy status to penicillin; Z88.8 Allergy status to other drugs, medicaments and biological substances; Z88.1 Allergy status to other antibiotic agents; Z88.2 Allergy status to sulfonamides; Z68.25 Body mass index [BMI] 25.0-25.9, adult; Z78.1 Physical restraint status
CPT/HCPCS: 31500; 36415; 36556; 36600; 71045; 80048; 80053; 81003; 82375; 82553; 82805; 83605; 83880; 84145; 84478; 84484; 85025; 85027; 87070; 87635; 87804; 92610; 93005; 93306; 93970; 97116; 97162; 99291; C9113; J0330; J0692; J1650; J1940; J2060; J2250; J2270; J2405; J2704; J2920; J3480; J3490; J7030; J7060; J7608